=== PATIENT | male | born 1950 | race Caucasian/White ===

== ENCOUNTER 2016-08-14 23:50 | Emergency (ER) | payer OTHER ==
--- NOTE | ~2016-08-14 | EKG ---
PATIENT: LENORA LATIF UNIT #: [id number] Ventricular Rate: 85 BPM Atrial Rate: 85 BPM P-R Interval: 138 ms QRS Duration: 96 ms Q-T Interval: 386 ms QTC Calculation(Bezet): 459 ms P [place]: 68 degrees Calculated R [place]: 57 degrees Calculated T [place]: 59 degrees Diagnosis Line: Normal sinus rhythm Diagnosis Line: Normal ECG Diagnosis Line: When compared with ECG of 26-FEB-2016 23:10, Diagnosis Line: Nonspecific T wave abnormality no longer evident Diagnosis Line: in Inferior leads Diagnosis Line: T wave inversion no longer evident in Diagnosis Line: Anterolateral leads Diagnosis Line: QT has shortened Diagnosis Line: Confirmed by IFTIKHAR LEWIS MD ([id number]) on 08/17/2016 Diagnosis Line: 7:26:14 AM INTERPRETING MD: DEBBIE CRONIN
--- NOTE | ~2016-08-14 | CT71 ---
[facility] A Service of [facility] [place] RADIOLOGY TEXT RESULTS PATIENT: LENORA LATIF LOCATION: [facility] : 52 UNIT #: [id number] AGE: [address]: Axel Walters MD SEX: M ORDER DR: [id number] [address] [place], [place] [address] [id number] E MR#: [id number] Acc #: [id number] NAME: LENORA LATIF : 1950 SEX: M STUDY DATE/TIME: 08/15/2016 1:04 UNIT: [facility] ROOM: STUDY DESCRIPTION: CT Head Wo Contrast Attending Physician: Axel Walters M.D. Ordering Physician: Axel Walters M.D. Primary Care Physician: No Primary Care Physician MEDICAL IMAGING REPORT This report is preliminary unless electronic signature is present EXAM CT head, noncontrast. DATE OF EXAM 08/15/2016 HISTORY 65-year-old male in the ED after acute head injury. He fell tonight, striking the upper posterior head. He complains of headaches and dizziness. TECHNIQUE CT examination of the head without IV contrast. NOTE: This CT exam was performed with one or more of the following radiation dose reduction techniques: automatic exposure control, adjustment of mA and/or kV according to patient size, and iterative reconstruction. FINDINGS No acute intracranial abnormality is identified, there is no visible skull fracture. Mild generalized cerebral cortical atrophy. Mild diffuse low-attenuation of white matter changes, nonspecific but likely related to chronic small vessel disease. These findings are stable since 08/07/2016. No evidence of intracranial hemorrhage, mass, mass effect, acute cerebral edema or hydrocephalus. Old bilateral nasal bone fractures. IMPRESSION 1. No acute intracranial abnormality. No visible skull fracture. 2. Mild diffuse chronic changes as noted above. [facility] A Service of [facility] [place] RADIOLOGY TEXT RESULTS PATIENT: LENORA LATIF LOCATION: [facility] : 52 UNIT #: [id number] AGE: [address]: Axel Walters MD SEX: M ORDER DR: 3. Old bilateral nasal bone fractures. 4. No change since 08/07/2016. Dictated by... Jarrett Kingston M.D. THIS IS AN ELECTRONICALLY VERIFIED REPORT Jarrett Kingston M.D. at 08/16/2016 12:05 AM JENNYFER/scar TD: 08/15/2016 23:57 JOB #: [id number] MEDICAL IMAGING REPORT COPY
[~2016-08-14 23:50] MED LIST: ACETAMINOPHEN PO; ACTOS30 MG PO; ALDACTONE25 MG PO; ASPIRIN PO; ASPIRIN81 MG PO; BACLOFEN10 MG PO; CLOPIDOGREL75 MG PO; COREG6.25 MG PO; DAPTOMYCIN IV; LIBRIUM25 M1 PO; LIPITOR20 MG PO; LIPITOR40 MG PO; LISINOPRIL20 MG PO; METOPROLOL TAR25 MG PO; MOTRIN400 MG PO; MULTI-VITAMIN1 EAC1 PO; NAPROXEN PO; NEURONTIN600 MG PO; NORVASC PO; OXYCONTIN PO; PERCOCET 10/31 UDTA1 PO; PLAVIX PO; PREDNISONE10 MG PO; PROTONIX PO; RIFAMPIN300 M1 PO; THIAMINE HCL100 M1 PO; XANAX0.5 M1 PO; ZYVOX600 MG PO
[2016-08-15 01:37] LABS: BASOPHIL# 0.1 X10e3 (0-0.3); BASOPHIL% 0.8 % (0-2.5); DIFF IND NO; EOSINOPHIL# 0.2 X10e3 (0-0.7); EOSINOPHIL% 2.1 % (0.0-7.0); HEMATOCRIT 29.1 % (38.0-50.0); HEMOGLOBIN 9.7 gm/dL (13.0-16.0); LYMPHOCYTE# 1.2 X10e3 (1.0-3.5); LYMPHOCYTE% 13.1 % (17.0-45.0); MEAN CELL VOLUME 89.6 FL (83-96); MEAN CORPUSCULAR HGB CONC 33.5 g/dL (30-36); MEAN PLATELET VOLUME 6.5 FL (6.5-11.5); MONOCYTE# 0.6 X10e3 (0-1.0); MONOCYTE% 6.8 % (3.0-12.0); NEUTROPHIL# 7.3 X10e3 (1.5-7.1); NEUTROPHIL% 77.2 % (40-75); PLATELET COUNT 308 X10e3 (140-420); RED BLOOD COUNT 3.24 X10e (3.90-5.60); RED CELL DISTRIBUTION WIDTH 15.9 % (11.0-15.5); WHITE BLOOD COUNT 9.5 X10e3 (4.0-10.5)
[2016-08-15 02:21] LABS: ALBUMIN SERUM 3.9 g/dL (3.5-5.0); ALKALINE PHOSPHATASE 114 U/L (32-92); ALT (SGPT) 11 U/L (10-40); AST (SGOT) 20 U/L (10-42); BILIRUBIN, DIRECT 0.1 mg/dL (0.0-0.2); BILIRUBIN,INDIRECT 0.7 mg/dL (0.0-0.9); BILIRUBIN,TOTAL 0.8 mg/dL (0.2-2.0); BLOOD UREA NITROGEN 21 mg/dL (9-23); CARBON DIOXIDE 25 mmol/L (22-31); CHLORIDE 95 mmol/L (100-111); CREATININE SERUM 0.6 mg/dL (0.6-1.4); GLOM FILT RATE Estimated ABOVE60 mL/min (>60); GLUCOSE FASTING 116 mg/dL (70-110); POTASSIUM 3.6 mmol/L (3.5-5.1); PROTEIN TOTAL SERUM 6.5 g/dL (6.0-8.3); SODIUM 129 mmol/L (135-145)
== END 2016-08-15 02:52 | disposition home or self-care (01) ==
LOC: CED 23:50
PROVIDERS: Emergency Medicine
DX: S00.03XA Contusion of scalp, initial encounter (principal); F17.210 Nicotine dependence, cigarettes, uncomplicated; Z79.899 Other long term (current) drug therapy; Z88.1 Allergy status to other antibiotic agents; Z88.5 Allergy status to narcotic agent; W19.XXXA Unspecified fall, initial encounter
CPT/HCPCS: 36415; 70450; 80048; 80076; 85025; 93005; 99284; G0480